=== PATIENT | female | born 1995 | race African-American/Black ===

== ENCOUNTER 2023-12-29 15:38 | Emergency (ER) | payer SELFPAY ==
[2023-12-29] MEDS ORDERED: Ketorolac Tromethamine 30 MG (1 mL) VIAL ONE (16:10)
== END 2023-12-29 17:04 | disposition home or self-care (01) ==
LOC: CSHERS 15:38
DX: S93.402A Sprain of unspecified ligament of left ankle, initial encounter (principal); W10.9XXA Fall (on) (from) unspecified stairs and steps, initial encounter
CPT/HCPCS: 96372; 99283; J1885